=== PATIENT | female | born 1995 | race Caucasian/White ===

== ENCOUNTER 2018-12-28 18:28 | Emergency (ER) | payer MEDICAID ==
[~2018-12-28] VITALS: Ht 172.7 cm; Wt 88.2 kg
[2018-12-28 18:51] VITALS: BP 130/98
--- NOTE | 2018-12-28 19:04 | NUR ---
PT TO ROOM AND PLACED IN GOWN URINE AND BLOOD TO LAB AND AWAITING RESULTS WITH ERP RECHECK.
[2018-12-28 19:24] LABS: MICROSCOPIC NOT IND
[2018-12-28 19:25] LABS: ALBUMIN 4.2 g/dL (3.4-5.0); ANION GAP 6 mmol/L (5-15); CALCIUM 8.6 mg/dL (8.5-10.1); CHLORIDE 105 mmol/L (98-107); CREATININE 0.79 mg/dL (0.55-1.02)
[2018-12-28 19:28] LABS: BASOPHILS # (AUTO) 0.02 x10^3/uL (0-0.1); BASOPHILS % (AUTO) 0 % (0-1); EOSINOPHILS # (AUTO) 0.09 x10^3/uL (0-0.4); EOSINOPHILS % (AUTO) 2 % (1-7); LYMPHOCYTES # (AUTO) 2.26 x10^3/uL (1-3.4); LYMPHOCYTES % (AUTO) 38 % (22-44); MD NO; MEAN CORPUSCULAR HEMOGLOBIN 32.1 pg (27.0-34.8); MEAN CORPUSCULAR HGB CONC 35.3 g/dL (32.4-35.8); MEAN CORPUSCULAR VOLUME 90.9 fL (80-100); MEAN PLATELET VOLUME 8.6 fL (7.4-10.4); MONOCYTES # (AUTO) 0.45 x10^3/uL (0.2-0.8); MONOCYTES % (AUTO) 8 % (2-9); NEUTROPHILS # (AUTO) 3.12 x10^3/uL (1.8-6.8); NEUTROPHILS % (AUTO) 53 % (42-75); PLATELET COUNT 181 x10^3/uL (130-400); RED BLOOD COUNT 4.56 x10^6/uL (3.82-5.3); RED CELL DISTRIBUTION WIDTH 11.9 % (9.6-15.2)
[2018-12-28 19:29] LABS: ALKALINE PHOSPHATASE 47 U/L (45-117); BILIRUBIN,TOTAL 0.4 mg/dL (0.2-1.0); TOTAL PROTEIN 7.9 g/dL (6.4-8.2)
[2018-12-28 19:32] LABS: CULTURE INDICATED? NO
[2018-12-28] MEDS ORDERED: KETOROLAC 30 MG/1 ML ONE (19:43)
--- NOTE | 2018-12-28 19:50 | NUR ---
PT BACK FROM US AND MEDICATED ORDERED. PT AWAITING TEST RESULTS AND US READ.
[2018-12-28] MEDS ORDERED: KETOROLAC 30 MG/1 ML IM ONE (20:00)
[2018-12-28 20:15] LABS: ALANINE AMINOTRANSFERASE 24 U/L (12-78)
== END 2018-12-28 20:02 | disposition home or self-care (01) ==
LOC: ED 19:51
DX: N83.291 Other ovarian cyst, right side (principal); R10.32 Left lower quadrant pain
CPT/HCPCS: 36415; 76830; 80053; 81003; 84703; 85025; 96372; 99284; J1885